=== PATIENT | male | born 1975 | race Hispanic/Latino ===

== ENCOUNTER 2017-05-11 08:11 | Emergency (ER) | payer OTHER ==
[2017-05-11 08:23] VITALS: BP 135/92
[2017-05-11] MEDS ORDERED: PERCOCET 5/325 PO ONE (10:10)
[2017-05-11] MEDS ORDERED: FLEXERIL PO ONE (10:10)
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
== END 2017-05-11 10:36 | disposition home or self-care (01) ==
LOC: ED 08:11
DX: S39.012A Strain of muscle, fascia and tendon of lower back, initial encounter (principal); V43.52XA Car driver injured in collision with other type car in traffic accident, initial encounter; Y93.89 Activity, other specified; Y99.8 Other external cause status; Y92.89 Other specified places as the place of occurrence of the external cause
CPT/HCPCS: 99283